=== PATIENT | female | born 1940 | race Caucasian/White ===

== ENCOUNTER 2019-02-25 15:19 | Emergency (ER) | payer MEDICARE, OTHER ==
[~2019-02-25] VITALS: Ht 157.5 cm; Wt 72.6 kg
[2019-02-25 15:27] VITALS: BP 130/96
[2019-02-25 18:16] VITALS: BP 124/83
== END 2019-02-25 18:16 | disposition home or self-care (01) ==
LOC: MED 15:19
DX: M25.562 Pain in left knee (principal); F41.9 Anxiety disorder, unspecified; I10 Essential (primary) hypertension; Z88.0 Allergy status to penicillin; Z98.890 Other specified postprocedural states
CPT/HCPCS: 73562; 99283; Q0092